=== PATIENT | male | born 1965 | race Caucasian/White ===

== ENCOUNTER 2017-02-04 12:21 | Emergency (ER) | payer SELFPAY ==
[~2017-02-04] VITALS: Ht 172.7 cm; Wt 120.0 kg
[2017-02-04 12:22] VITALS: BP 177/98; PULSE 104; RESP 15; TEMP 98.8; O2SAT 99
[2017-02-04 12:34] VITALS: BP 169/103; PULSE 106; RESP 20; O2SAT 100
[2017-02-04 12:38] VITALS: BP 153/81
[2017-02-04] MEDS ORDERED: SODIUM CHLOR 0.9% 1000 ML INJ 1,000 ML IV SCH (12:38)
--- NOTE | 2017-02-04 12:40 | PD ---
HPI Chief Complaint: Abdominal Pain Time Seen by Provider: 12:39 Travel History International Travel<30 days: No Contact w/Intl Traveler<30days: No Traveled to known affect area: No History of Present Illness HPI 51-year-old male presents to the emergency department for evaluation of right lower quadrant abdominal pain that began yesterday. Patient states that the pain as a dull ache and has been constant since yesterday. It radiates to the right testicle. He states that he had 1 episode of nonbloody nonbilious emesis last night. He denies any fever, chills, nausea, diarrhea, constipation, bloody stool, dysuria, hematuria. He denies any prior abdominal surgeries. His pain as a 5 on a scale of 1-10. Denies any aggravating or alleviating factors. No other complaints. [facility] Past Medical History Medical History: Denies Significant Hx Musculoskeletal: Yes (BACK PROB HURT LAST YR-CHIROPRACT) Past Surgical History Surgical History: No Previous Surgery Social History Alcohol Use: Yes ([facility]) Tobacco Use: No Substance Use: No Allergies-Medications (Allergen,Severity, Reaction): Coded Allergies: No Known Allergies (Unverified , 02/04/17) Review of Systems Except as stated in HPI: all other systems reviewed are Neg Physical Exam Narrative GENERAL: Well-nourished and well-developed pleasant male patient in no acute distress who is nontoxic appearing. SKIN: Warm and dry. HEAD: Normocephalic and atraumatic. EYES: No injection, drainage, or hyphema noted. PERRLA. EOMI. ENT: No nasal drainage noted. Oropharynx is clear. NECK: Supple and the trachea is midline. CARDIOVASCULAR: Regular rate and rhythm. RESPIRATORY: Breath sounds are equal bilaterally with no accessory muscle use, wheezing, rhonchi, or crackles. GASTROINTESTINAL: Right lower quadrant tenderness to palpation. No rebound tenderness or guarding. Abdomen is soft and nondistended. GENITOURINARY: Circumcised. Testes descended bilaterally without evidence of rotation. Performed in the presence of nurse. MUSCULOSKELETAL: No obvious deformities, swelling, cyanosis, or ecchymosis is present throughout the upper and lower extremities. Patient has full range of motion without any signs of neurovascular compromise. BACK: Negative CVA tenderness. NEUROLOGICAL: Awake, alert, and oriented. Normal speech and gait. Cranial nerves are grossly intact. Data Data Last Documented VS Vital Signs Date Time Temp Pulse Resp B/P Pulse Ox O2 Delivery O2 Flow Rate FiO2 02/04/17 14:34 89 20 148/70 99 Room Air 02/04/17 12:22 98.8 Orders Complete Blood Count With Diff (02/04/17 12:38) Comprehensive Metabolic Panel (02/04/17 12:38) Lipase (02/04/17 12:38) Prothrombin Time / Inr (Pt) (02/04/17 12:38) Act Partial Throm Time (Ptt) (02/04/17 12:38) Urinalysis - C+S If Indicated (02/04/17 12:38) Ct Abd/Pel W/O Iv Contrast (02/04/17 12:38) Iv Access Insert/Monitor (02/04/17 12:38) Ecg Monitoring (02/04/17 12:38) Oximetry (02/04/17 12:38) Sodium Chlor 0.9% 1000 Ml Inj (Ns 1000 M (02/04/17 12:38) Sodium Chloride 0.9% Flush (Ns Flush) (02/04/17 12:45) Ketorolac Inj (Toradol Inj) (02/04/17 14:45) Acetamin-Hydrocod 325-5 Mg (Stuart 5-325 (02/04/17 14:45) Labs Laboratory Tests Test 02/04/17 12:44 White Blood Count 16.7 TH/MM3 Red Blood Count 5.85 MIL/MM3 Hemoglobin 17.4 GM/DL Hematocrit 48.8 % Mean Corpuscular Volume 83.5 FL Mean Corpuscular Hemoglobin 29.8 PG Mean Corpuscular Hemoglobin 35.7 % Concent Red Cell Distribution Width 13.1 % Platelet Count 282 TH/MM3 Mean Platelet Volume 8.7 FL Neutrophils (%) (Auto) 86.1 % Lymphocytes (%) (Auto) 7.8 % Monocytes (%) (Auto) 5.6 % Eosinophils (%) (Auto) 0.0 % Basophils (%) (Auto) 0.5 % Neutrophils # (Auto) 14.4 TH/MM3 Lymphocytes # (Auto) 1.3 TH/MM3 Monocytes # (Auto) 0.9 TH/MM3 Eosinophils # (Auto) 0.0 TH/MM3 Basophils # (Auto) 0.1 TH/MM3 CBC Comment DIFF FINAL Differential Comment Prothrombin Time 10.5 SEC Prothromb Time International 1.0 RATIO Ratio Activated Partial 28.6 SEC Thromboplast Time Urine Color LIGHT-YELLOW Urine Turbidity CLEAR Urine pH 7.5 Urine Specific [place] 1.005 Urine Protein NEG mg/dL Urine Glucose (UA) NEG mg/dL Urine Ketones NEG mg/dL Urine Occult Blood NEG Urine Nitrite NEG Urine Bilirubin NEG Urine Urobilinogen LESS THAN 2.0 MG/DL Urine Leukocyte Esterase NEG Urine RBC 1 /hpf Urine WBC 1 /hpf Microscopic Urinalysis Comment CULT NOT INDICATED Sodium Level 138 MEQ/L Potassium Level 3.6 MEQ/L Chloride Level 101 MEQ/L Carbon Dioxide Level 27.8 MEQ/L Anion Gap 9 MEQ/L Blood Urea Nitrogen 9 MG/DL Creatinine 1.00 MG/DL Estimat Glomerular Filtration 78 ML/MIN Rate Random Glucose 121 MG/DL Calcium Level 9.6 MG/DL Total Bilirubin 0.6 MG/DL Aspartate Amino Transf 34 U/L (AST/SGOT) Alanine Aminotransferase 39 U/L (ALT/SGPT) Alkaline Phosphatase 106 U/L Total Protein 8.4 GM/DL Albumin 4.5 GM/DL Lipase 107 U/L [facility] Medical Decision Making Medical Screen Exam Complete: Yes Emergency Medical Condition: Yes Differential Diagnosis Kidney stone versus appendicitis versus colitis versus diverticulitis Narrative Course 51-year-old male presents to the emergency department for evaluation of right lower quadrant abdominal pain that began yesterday. Patient is afebrile. He is slightly tachycardic with a heart rate of 104 bpm. Otherwise vital signs within normal limits. He does have mild right lower quadrant tenderness to palpation. No peritoneal signs. IV access is obtained, labs were drawn and sent. CT the abdomen and pelvis has been ordered and is pending. CBC shows an elevated white blood cell count of 16.7 and elevated hemoglobin of 17.4. CMP is unremarkable. Coags are unremarkable. Urinalysis is unremarkable. CT of the abdomen and pelvis shows multiple gallstones but no evidence of hydronephrosis and a normal-appearing appendix. No acute abnormalities noted on CT scan. Patient is reassessed and his abdomen has remained soft with only mild right lower quadrant tenderness. I discussed all findings with the patient. I discussed that he has an elevated white count and may have a viral infection as the etiology of his symptoms. However, I did stress to him that should he have any worsening of his abdominal pain, fever, vomiting or diarrhea he should return immediately to the emergency department. The patient verbalizes understanding and is comfortable and in agreement with this plan. I discussed the case with my attending physician Dr. Reynolds who is aware of the patients history, physical examination findings, and treatment plan. Diagnosis Primary Impression: Abdominal pain Qualified Code: R10.31 - Right lower quadrant abdominal pain Referrals: Primary Care Physician Patient Instructions: Abdominal Pain (ED), General Instructions Additional Instructions: Take medications as prescribed. Do not take Lortab with alcohol or while driving. Return to the ED for any acute worsening of symptoms such as fever, vomiting, worsening abdominal pain. Med/Other Pt SpecificInfo: Prescription(s) given Scripts Hydrocodone-Acetaminophen (Lortab)5-325 Mg Tab1 Tab PO Q6H PRN (PAIN GREATER THAN 6) #15 TAB Ref 0 Prov:Della Reynolds MD 02/04/17 Disposition: 01 DISCHARGE HOME Condition: Stable Yas Lopez Feb 04, 2017 12:40
[2017-02-04 12:44] VITALS: O2SAT 100
[2017-02-04] MEDS ORDERED: SODIUM CHLORIDE 0.9% FLUSH 10 ML FLUSH IV FLUSH PRN (12:45)
[2017-02-04 13:08] LABS: AUTOMATED NEUTROPHIL # 14.4 TH/MM3 (1.8-7.7); BASOPHIL # 0.1 TH/MM3 (0-0.2); BASOPHIL % 0.5 % (0.0-2.0); HEMATOCRIT 48.8 % (39.0-51.0); HEMO FLAGS DIFF FINAL; LYMPH % 7.8 % (9.0-44.0); LYMPHOCYTE # 1.3 TH/MM3 (1.0-4.8); MEAN CELL VOLUME 83.5 FL (80.0-100.0); MEAN CORPUSCULAR HEMOGLOBIN 29.8 PG (27.0-34.0); MEAN CORPUSCULAR HGB CONC 35.7 % (32.0-36.0); MONO % 5.6 % (0.0-8.0); NEUT % 86.1 % (16.0-70.0); PLATELET COUNT 282 TH/MM3 (150-450); RED BLOOD COUNT 5.85 MIL/MM3 (4.50-5.90); RED CELL DISTRIBUTION WIDTH 13.1 % (11.6-17.2); WHITE BLOOD COUNT 16.7 TH/MM3 (4.0-11.0)
[2017-02-04 13:12] LABS: BLOOD, URINE NEG (NEG); COMMENT (UR) CULT NOT INDICATED; CULTURE IF INDICATED CULT NOT INDICATED; GLUCOSE,URINE NEG (NEG); KETONE, URINE NEG (NEG); NITRITE,URINE NEG (NEG); PH, URINE 7.5 (5.0-8.5); URINE COLOR LIGHT-YELLOW (YELLW/STRAW)
[2017-02-04 13:21] LABS: APTT (PATIENT) 28.6 SEC (24.3-30.1); PROTHROMBIN TIME - PATIENT 10.5 SEC (9.8-11.6)
[2017-02-04 13:28] LABS: ANION GAP 9 MEQ/L (5-15); AST (GOT) 34 U/L (15-37); BICARBONATE 27.8 MEQ/L (21.0-32.0); BLOOD UREA NITROGEN 9 MG/DL (7-18); CHLORIDE 101 MEQ/L (98-107); GLOMERULAR FILTRATION RATE 78 ML/MIN (>89); POTASSIUM 3.6 MEQ/L (3.5-5.1); SODIUM (NA) 138 MEQ/L (136-145)
[2017-02-04 13:31] LABS: ALKALINE PHOSPHATASE 106 U/L (45-117); ALT (GPT) 39 U/L (12-78); TOTAL BILIRUBIN ADULT 0.6 MG/DL (0.2-1.0)
--- NOTE | 2017-02-04 14:32 | RADRPT ---
EXAM DATE/TIME: 02/04/2017 13:33 [place] COMPARISON: No previous studies available for comparison. INDICATIONS : Right lower quadrant pain. ORAL CONTRAST: No oral contrast ingested. RADIATION DOSE: 16.37 CTDIvol (mGy) MEDICAL HISTORY : None SURGICAL HISTORY : None. ENCOUNTER: Initial ACUITY: 2 days PAIN SCALE: 6/10 LOCATION: Right lower quadrant TECHNIQUE: Volumetric scanning of the abdomen and pelvis was performed. Using automated exposure control and ad justment of the mA and/or kV according to patient size, radiation dose was kept as low as reasonably achievable to obtain optimal diagnostic quality images. FINDINGS: LOWER LUNGS: The visualized lower lungs are clear. LIVER: Homogeneous density without lesion noncontrast technique. There is no dilation of the biliary tree. Multiple peripherally calcified gallstones measuring up to 12 mm in size. SPLEEN: Normal size without lesion. PANCREAS: Within normal limits. KIDNEYS: Normal in size and shape. There is no mass, stone, or hydronephrosis. ADRENAL GLANDS: Within normal limits. VASCULAR: There is no aortic aneurysm. BOWEL/MESENTERY: No dilated loops of small or large bowel. The appendix is identified in the right lower quadrant has a normal appearance. No evidence of free fluid. ABDOMINAL WALL: Within normal limits. RETROPERITONEUM: There is no lymphadenopathy. BLADDER: No wall thickening or mass. REPRODUCTIVE: Within normal limits. INGUINAL: There is no lymphadenopathy or hernia. MUSCULOSKELETAL: Within normal limits for patient age. CONCLUSION: 1. Multiple gallstones. 2. No evidence of hydronephrosis. 3. Normal appearance to the appendix. Angelo Oleary MD on February 04, 2017 at 14:27 Board Certified Radiologist. This report was verified electronically.
[2017-02-04 14:34] VITALS: BP 148/70; PULSE 89; RESP 20; O2SAT 99
[2017-02-04] MEDS ORDERED: HYDR-3533 PO (14:44)
[2017-02-04] MEDS ORDERED: KETOROLAC TROMETHAMINE 30 MG/ML (IVP) VIAL IV PUSH ONE (14:45)
[2017-02-04] MEDS ORDERED: ACETAMINOPHEN/HYDROcodone 325 MG/5 MG TAB PO ONE (14:45)
== END 2017-02-04 15:46 | disposition home or self-care (01) ==
LOC: NEPC 12:21
DX: R10.31 Right lower quadrant pain (principal); D72.829 Elevated white blood cell count, unspecified; R79.89 Other specified abnormal findings of blood chemistry
CPT/HCPCS: 74176; 80053; 81001; 83690; 85025; 85610; 85730; 96361; 96374; 99285; J1885; J7030